=== PATIENT | male | born 1945 | race Caucasian/White ===

== ENCOUNTER 2018-08-25 17:11 | Observation (INO) ==
[2018-08-25] MEDS ORDERED: Isovue-370 500 ML INFUS..BTL IV ONE (20:02)
--- NOTE | 2018-08-25 20:31 | Emergency Department Note ---
Disposition Clinical Impression: Deep vein thrombosis of lower extremity, Swelling of lower limb Disposition: Admitted As Inpatient Condition: Fair Referrals: Tucker Dinero MD [Primary Care Provider] - Forms: ED Satisfaction Letter Time of Disposition: 01:08 General Adult HPI - General Chief complaint: ED Extremity Problem,Nontraumatic Stated complaint: "abcess in leg leaking" Time Seen by Provider: 08/25/18 19:19 - History of Present Illness Pain Scale: 8 - Related Data Home Medications Medication Instructions Recorded Confirmed Aloe Vera 10/24/16 Milk Thistle 10/24/16 Multivitamin 10/24/16 Vitamin B Complex 10/24/16 Vitamin B-12 10/24/16 Vitamin D3 10/24/16 Previous Rx's Medication Instructions Recorded Benzonatate [Tessalon] 200 mg PO TID #40 capsule 09/25/17 predniSONE [PredniSONE] 0 mg PO DAILY #15 tablet 09/25/17 Allergies Allergy/AdvReac Type Severity Reaction Status Date / Time No Known Allergies Allergy Unverified 09/25/17 14:19 Past Medical History - Past Medical History Medical history: Reports: no medical history Surgical history: Reports: other (Vitrectomy 1981) - Social History Smoking Status: Never smoker Smokeless Tobacco Status: No Alcohol use: Reports: none Course Vital Signs Temperature 97.7 F 08/25/18 17:43 Pulse Rate 84 08/25/18 17:43 Respiratory Rate 16 08/25/18 17:43 Blood Pressure 161/73 08/25/18 17:43 O2 Sat by Pulse Oximetry 94 08/25/18 17:43 Temperature 97.7 F 08/25/18 20:50 Pulse Rate 84 08/25/18 20:50 Respiratory Rate 16 08/25/18 20:50 Blood Pressure 161/73 08/25/18 20:50 O2 Sat by Pulse Oximetry 94 08/25/18 20:50 Oxygen Delivery Oxygen Delivery Room Air Medical Decision Making - Lab Data Result diagrams: 08/25/18 20:22 08/25/18 20:22 Lab Results 08/25/18 08/25/18 08/25/18 Range/Units 20:15 20:22 20:22 WBC 6.8 (4.3-11.1) K/mcL RBC 4.41 (4.19-5.50) M/mcL Hgb 13.7 (12.9-16.9) g/dL Hct 40.9 (37.5-50.1) % MCV 92.7 (83.0-100.0) fL MCH 31.1 (28.0-33.3) pg MCHC 33.5 (31.6-35.5) g/dL RDW 13.1 (11.5-14.5) % Plt Count 180 (140-400) K/mcL MPV 9.4 (9.4-12.4) fL Immature Gran % 0.3 (0-4) % Seg Neutrophils % 61.7 % Lymphocytes % 24.4 % Monocytes % 9.6 % Eosinophils % 3.6 % Basophils % 0.4 % Neutrophils # 4.2 (1.6-8.9) K/mcL Lymphocytes # 1.7 (0.6-4.6) K/mcL Monocytes # 0.7 (0.0-1.3) K/mcL Eosinophils # 0.2 (0.0-0.6) K/mcL Basophils # 0.0 (0.0-0.2) K/mcL PT 10.9 (9.4-12.1) Seconds INR 1.0 APTT 34.3 (26.0-36.0) Seconds Sodium 138 (136-145) mEq/L Potassium 3.9 (3.5-5.1) mEq/L Chloride 101 (98-107) mEq/L Carbon Dioxide 31 H (23-29) mEq/L BUN 16 (8-23) mg/dL Creatinine 1.00 (0.70-1.30) mg/dL Est GFR ( Amer) > 60 (> 60) Est GFR (Non-Af Amer) > 60 (> 60) BUN/Creatinine Ratio 16 (6-26) Glucose 123 H (70-105) mg/dL Calculated Osmolality 289 (280-300) Lactic Acid (0.5-2.2) mmol/L Calcium 9.2 (8.6-10.3) mg/dL 08/25/18 Range/Units 20:22 WBC (4.3-11.1) K/mcL RBC (4.19-5.50) M/mcL Hgb (12.9-16.9) g/dL Hct (37.5-50.1) % MCV (83.0-100.0) fL MCH (28.0-33.3) pg MCHC (31.6-35.5) g/dL RDW (11.5-14.5) % Plt Count (140-400) K/mcL MPV (9.4-12.4) fL Immature Gran % (0-4) % Seg Neutrophils % % Lymphocytes % % Monocytes % % Eosinophils % % Basophils % % Neutrophils # (1.6-8.9) K/mcL Lymphocytes # (0.6-4.6) K/mcL Monocytes # (0.0-1.3) K/mcL Eosinophils # (0.0-0.6) K/mcL Basophils # (0.0-0.2) K/mcL PT (9.4-12.1) Seconds INR APTT (26.0-36.0) Seconds Sodium (136-145) mEq/L Potassium (3.5-5.1) mEq/L Chloride (98-107) mEq/L Carbon Dioxide (23-29) mEq/L BUN (8-23) mg/dL Creatinine (0.70-1.30) mg/dL Est GFR ( Amer) (> 60) Est GFR (Non-Af Amer) (> 60) BUN/Creatinine Ratio (6-26) Glucose (70-105) mg/dL Calculated Osmolality (280-300) Lactic Acid 0.9 (0.5-2.2) mmol/L Calcium (8.6-10.3) mg/dL Attestation Statement - Attestation Attestation: I, Vahe Rivera DO, examined this patient [id number] and my medical decision-making was reviewed with Deep Patel DO , Resident Physician. I agree with the documented findings, disposition and treatment plan as described except to the extent set forth below. Please see my progress notes for details. 73-year-old male presents to the emergency room with persistently worsening right lower extremity swelling. He has pain in his right calf and foot. He is noted swelling is getting worse to the point where skin is weeping. He is currently denying chest pain, shortness breath, nausea vomiting or diarrhea. Denies any fevers or chills. Denies any falls trauma or injuries. Has not had any other complaints or symptoms. Patient decided to come in and get his leg business consult here today because his daughter is concerned about the weeping in the redness. Vital signs are stable. Patient is alert he is oriented and speaking in full sentences. Is otherwise in no distress. Lungs are clear heart is regular. Abdomen is soft nontender nondistended. Patient has no pain with palpation over the right hip. Patient's knee and ankle appear to be structurally stable. There is swelling that is present from above the knee down to the foot. There is warmth noted. No palpable abscesses or fluid accumulation noted. Because of the presenting symptoms as well as the patient's lack of medical history we will do screening labs including a CBC chemistry urinalysis as well as CT imaging and Doppler study of the right lower extremity looking for vascular, tissue and blood clot related etiology. Pulses in the lower extremities are difficult to appreciate but the area is warm. The patient does have normal sensation. No acute signs of arterial occlusion noted at this point. Disposition to be determined once full workup treatment course I been established. We will continue to monitor here until the workup has been completed. See detailed documentation of the physical exam, medical intervention, medical decision-making and disposition in the resident physician's note. No critical care provider the patient's treatment course at this time. [id number] Patient found to have negative CT scan of the leg fluid accumulation or concerning signs for cellulitis. The only area that is noted is around the knee for the patient does have the DVT. Xarelto started here at this time after lengthy discussion with the patient. The family is concerned because he is unable to get around at home and he does not have any help there. Also concerned because he does not have a primary care provider to follow-up with. At this point is determined that the patient will be admitted for monitoring and management. No other acute issues noted during this treatment course. Hospitalist has been paged for admission. Patient is otherwise clinically stable with no acute etiology. No other acute medical intervention required at this point. Patient will be admitted for continuation of care.
[2018-08-25 20:37] LABS: Basophils % 0.4 %; Eosinophils # 0.2 K/mcL (0.0-0.6); Eosinophils % 3.6 %; Hematocrit 40.9 % (37.5-50.1); Hemoglobin 13.7 g/dL (12.9-16.9); Immature Granulocytes % 0.3 % (0-4); Lymphocytes # 1.7 K/mcL (0.6-4.6); Lymphocytes % 24.4 %; Mean Corpuscular HGB Conc 33.5 g/dL (31.6-35.5); Mean Corpuscular Hemoglobin 31.1 pg (28.0-33.3); Mean Corpuscular Volume 92.7 fL (83.0-100.0); Mean Platelet Volume 9.4 fL (9.4-12.4); Monocytes # 0.7 K/mcL (0.0-1.3); Monocytes % 9.6 %; Neutrophils # 4.2 K/mcL (1.6-8.9); Platelet Count 180 K/mcL (140-400); Red Blood Count 4.41 M/mcL (4.19-5.50); Red Cell Distribution Width 13.1 % (11.5-14.5); Segmented Neutrophils % 61.7 %
[2018-08-25 20:56] LABS: BUN/Creatinine Ratio 16 (6-26); Blood Urea Nitrogen 16 mg/dL (8-23); Calcium 9.2 mg/dL (8.6-10.3); Carbon Dioxide 31 mEq/L (23-29); Chloride 101 mEq/L (98-107); Glucose 123 mg/dL (70-105); Osmolality,Calculated 289 (280-300); Potassium 3.9 mEq/L (3.5-5.1); Sodium 138 mEq/L (136-145); eGFR For Non-African Americans > 60 (> 60)
--- NOTE | 2018-08-25 21:06 | Emergency Department Note ---
Addendum entered and electronically signed by Deep Patel DO 08/26/18 01:10: Spoke with on-call hospitalist maria guadalupe Morrow to admit for DVT and leg edema. No further orders at this time Original Note: Disposition Clinical Impression: Lower extremity edema Deep vein thrombosis of lower extremity Qualifiers: Affected thrombotic vein of extremity: unspecified vein of extremity Chronicity: acute Laterality: right Qualified Code(s): I82.401 - Acute embolism and thrombosis of unspecified deep veins of right lower extremity Disposition: Admitted As Inpatient Condition: Good Referrals: Tucker Dinero MD [Primary Care Provider] - Forms: ED Satisfaction Letter Time of Disposition: 01:09 Extremity Problem HPI - General Chief complaint: ED Extremity Problem,Nontraumatic Stated complaint: "abcess in leg leaking" Time Seen by Provider: 08/25/18 19:19 Source: patient Limitations: no limitations Nursing Notes Reviewed: Yes Vital Signs Reviewed: Yes - History of Present Illness HPI Narrative: 73-year-old male no reported medical history, smokes 3 packs cigarette presents to the emergency department with complaints of leg swelling and weeping. Patient states over the past week he is noticed increased leg swelling in the past 3 days and has been seeping fluid. His right leg has appeared significantly more swollen than usual. He denies any chest pain or shortness of breath associated with this. He reports a prior injury to that leg several years ago but nothing recent. No reported weakness or numbness. No fevers at home. Denies any nausea or vomiting. Denies history of congestive heart failure. Denies history of blood clots. Pt Subjective Complaint: extremity pain, extremity swelling Pain Scale: 8 - Related Data Home Medications Medication Instructions Recorded Confirmed Aloe Vera 10/24/16 Milk Thistle 10/24/16 Multivitamin 10/24/16 Vitamin B Complex 10/24/16 Vitamin B-12 10/24/16 Vitamin D3 10/24/16 Previous Rx's Medication Instructions Recorded Benzonatate [Tessalon] 200 mg PO TID #40 capsule 09/25/17 predniSONE [PredniSONE] 0 mg PO DAILY #15 tablet 09/25/17 Allergies Allergy/AdvReac Type Severity Reaction Status Date / Time No Known Allergies Allergy Unverified 09/25/17 14:19 All systems ED: reviewed and negative except as stated. Review of Systems: As Per HPI Constitutional: Denies: fever, chills, weakness ENT ED: Denies: congestion Cardiovascular: Denies: chest pain Respiratory: Denies: dyspnea Gastrointestinal: Denies: abdominal pain, nausea, vomiting Musculoskeletal: Denies: back pain Integumentary: Reports: abrasion, lesions. Denies: rash Neurological: Denies: headache, weakness, numbness Past Medical History - Past Medical History Attestation: Yes The following information was validated with the patient. Source: patient Medical history: Reports: no medical history Surgical history: Reports: other (Vitrectomy 1981) Psychiatric history: Reports: no psych history - Social History Smoking Status: Current some day smoker Smokeless Tobacco Status: No Alcohol use: Reports: none Drug use: Reports: none Physical Exam - General Limitations: no limitations General appearance: alert, in no apparent distress - Head Head exam: atraumatic, normocephalic, normal inspection - Eye Eye exam: Present: normal appearance, PERRL, EOMI - ENT ENT exam: normal exam, normal oropharynx, mucous membranes moist - Neck Neck exam: Present: normal inspection, full ROM, trachea midline - Chest Chest inspection: Present: normal inspection, symmetric chest wall rise - Respiratory Respiratory exam: Present: normal lung sounds bilaterally - Cardiovascular Cardiovascular exam: Present: regular rate, normal rhythm, normal heart sounds - Abdominal Exam Abdominal exam: Present: soft, Non-Tender, normal bowel sounds. Absent: tend erness, distention, guarding, rebound, rigidity - Extremities Exam Extremities exam: Present: full ROM, pedal edema (Bilateral, greater on the right), calf tenderness (Right), other (Right lower extremities is weeping clear fluid, there are yellow crusted lesions on the lower leg). Absent: tenderness - Back Exam Back exam: Present: normal inspection, full ROM. Absent: tenderness - Neurological Exam Neurological exam: Present: alert, oriented X3 - Psychiatric Psychiatric exam: Present: normal affect, normal mood - Expanded Skin Exam Type of lesion: Absent: abscess Distribution: RLE Description: Present: erythematous, swelling. Absent: fluctuant Course Course Narrative: Patient presents with lower extremity swelling worse on the right with weeping of clear fluid. Patient is afebrile and denies fevers at home. He denies any dyspnea. No reported history of congestive heart failure. The right leg is significantly swollen and weeping clear fluid. There are 3 lesions that are yellow and crusty in nature. His leg is slightly erythematous but not warm to the touch. He has full range of motion to his lower extremity. There is some Tenderness. Pitting edema bilaterally but worse on the right up to the mid thigh. Concern for possible underlying deep vein thrombosis Doppler study ordered. Will also check basic labs including the CT scan to evaluate for any abscess. - Reevaluation(s) Reevaluation #1: Preliminary venous Doppler ultrasound positive for deep vein thrombosis Time: 22:08 Reevaluation #2: CT scan showed circumferential swelling. There was no fluid collection or abscess. The symptoms are likely exacerbated due to the blood clot. She will require anticoagulation. I discussed the risks and benefits and alternatives of different anticoagulants including Coumadin versus Lovenox versus NOAC. The patient and family decided they would like to try Xarelto. However the patient is not have primary care established and do not feel safe going back home as he is concerned he can't move around and take care of himself. Review of his labs are unremarkable. Lactate was normal. Patient was offered admission and will be treated with his 1st dose of Xarelto here. Denies any G.I. bleed symptoms. Tylenol given for pain. Time: 01:07 Vital Signs Temperature 97.7 F 08/25/18 17:43 Pulse Rate 84 08/25/18 17:43 Respiratory Rate 16 08/25/18 17:43 Blood Pressure 161/73 08/25/18 17:43 O2 Sat by Pulse Oximetry 94 08/25/18 17:43 Temperature 97.7 F 08/25/18 20:50 Pulse Rate 84 08/25/18 20:50 Respiratory Rate 16 08/25/18 20:50 Blood Pressure 161/73 08/25/18 20:50 O2 Sat by Pulse Oximetry 94 08/25/18 20:50 Oxygen Delivery Oxygen Delivery Room Air Extremity Problem, Nontraumati - MDM Narrative Medical decision making narrative: Patient was discussed with my attending physician who agrees with ED management and final disposition. They independently evaluated the patient. Please refer to their attestation to this encounter for additional information. This note was generated by [employer] voice recognition software and as a result grammatical or spelling errors may occur using this program. - Differential Diagnosis Likely: cellulitis, lower extremity edema - Medical Records Medical records reviewed: Yes I reviewed the patient's medical records. - Lab Data Lab results reviewed: Yes I reviewed the patient's lab results. Result diagrams: 08/25/18 20:22 08/25/18 20:22 Lab Results 08/25/18 08/25/18 08/25/18 Range/Units 20:15 20:22 20:22 WBC 6.8 (4.3-11.1) K/mcL RBC 4.41 (4.19-5.50) M/mcL Hgb 13.7 (12.9-16.9) g/dL Hct 40.9 (37.5-50.1) % MCV 92.7 (83.0-100.0) fL MCH 31.1 (28.0-33.3) pg MCHC 33.5 (31.6-35.5) g/dL RDW 13.1 (11.5-14.5) % Plt Count 180 (140-400) K/mcL MPV 9.4 (9.4-12.4) fL Immature Gran % 0.3 (0-4) % Seg Neutrophils % 61.7 % Lymphocytes % 24.4 % Monocytes % 9.6 % Eosinophils % 3.6 % Basophils % 0.4 % Neutrophils # 4.2 (1.6-8.9) K/mcL Lymphocytes # 1.7 (0.6-4.6) K/mcL Monocytes # 0.7 (0.0-1.3) K/mcL Eosinophils # 0.2 (0.0-0.6) K/mcL Basophils # 0.0 (0.0-0.2) K/mcL PT 10.9 (9.4-12.1) Seconds INR 1.0 APTT 34.3 (26.0-36.0) Seconds Sodium 138 (136-145) mEq/L Potassium 3.9 (3.5-5.1) mEq/L Chloride 101 (98-107) mEq/L Carbon Dioxide 31 H (23-29) mEq/L BUN 16 (8-23) mg/dL Creatinine 1.00 (0.70-1.30) mg/dL Est GFR ( Amer) > 60 (> 60) Est GFR (Non-Af Amer) > 60 (> 60) BUN/Creatinine Ratio 16 (6-26) Glucose 123 H (70-105) mg/dL Calculated Osmolality 289 (280-300) Lactic Acid (0.5-2.2) mmol/L Calcium 9.2 (8.6-10.3) mg/dL 08/25/18 Range/Units 20:22 WBC (4.3-11.1) K/mcL RBC (4.19-5.50) M/mcL Hgb (12.9-16.9) g/dL Hct (37.5-50.1) % MCV (83.0-100.0) fL MCH (28.0-33.3) pg MCHC (31.6-35.5) g/dL RDW (11.5-14.5) % Plt Count (140-400) K/mcL MPV (9.4-12.4) fL Immature Gran % (0-4) % Seg Neutrophils % % Lymphocytes % % Monocytes % % Eosinophils % % Basophils % % Neutrophils # (1.6-8.9) K/mcL Lymphocytes # (0.6-4.6) K/mcL Monocytes # (0.0-1.3) K/mcL Eosinophils # (0.0-0.6) K/mcL Basophils # (0.0-0.2) K/mcL PT (9.4-12.1) Seconds INR APTT (26.0-36.0) Seconds Sodium (136-145) mEq/L Potassium (3.5-5.1) mEq/L Chloride (98-107) mEq/L Carbon Dioxide (23-29) mEq/L BUN (8-23) mg/dL Creatinine (0.70-1.30) mg/dL Est GFR ( Amer) (> 60) Est GFR (Non-Af Amer) (> 60) BUN/Creatinine Ratio (6-26) Glucose (70-105) mg/dL Calculated Osmolality (280-300) Lactic Acid 0.9 (0.5-2.2) mmol/L Calcium (8.6-10.3) mg/dL - Radiology Data Radiology results reviewed: Yes I reviewed the patient's radiology results. Lower Extremity CT 08/25/18 20:02 IMPRESSION: 1. Circumferential superficial soft tissue edema in the distal right thigh, extending into the right leg and right foot. No abscess or fluid collection. D/ / Preston Cole MD / Preston Cole MD Interpreting Provider: Preston Cole MD Attestation Statement - Attestation Attestation: I, Vahe Rivera DO, examined this patient [id number] and my medical decision-making was reviewed with Deep Patel DO , Resident Physician. I agree with the documented findings, disposition and treatment plan as described except to the extent set forth below. Please see my progress notes for details.
[2018-08-25 23:09] LABS: Prothrombin Time 10.9 Seconds (9.4-12.1)
[2018-08-25 23:12] LABS: Activated Partial Thrombo Time 34.3 Seconds (26.0-36.0)
[2018-08-26] MEDS ORDERED: Ibuprofen 600 MG TABLET PO ONE (00:08)
[2018-08-26] MEDS ORDERED: *HR* Rivaroxaban 15 MG TABLET PO ONE (01:00)
[2018-08-26] MEDS ORDERED: Naloxone 0.4 MG/ML INJ IVP PRN (04:41)
[2018-08-26] MEDS ORDERED: Acetaminophen 325 MG TABLET PO PRN (04:41)
[2018-08-26] MEDS ORDERED: Ketorolac 30 MG/ML VIAL IVP PRN (04:41)
[2018-08-26] MEDS ORDERED: Ipratropium/Albuterol Neb 3 ML IH PRN (04:44)
--- NOTE | 2018-08-26 04:51 | Internal Med History&Physical ---
Date of Encounter: 08/26/18 Time of Encounter: 04:49 Internal Medicine - H&P: HPI Chief complaint: leg swelling Admitted From: Home Plans for Post Hospital Care: Home History of present illness: Joo Manjarrez is a 73-year-old man who reports a strong smoking history seen to have obstructive pattern of lung disease on spirometry from 2014 who presents to the emergency room complaining of lower extremity swelling with the right side worse than the left in addition to weeping of clear fluid. He states that the swelling has been going on for months however over the past week has noticed that his right leg became significantly more swollen and erythematous without associated worsening pain or tenderness. He denied fever and chills. In the ER he was seen to have pitting edema bilaterally but worse on the right up to the midthigh. Doppler study was ordered and preliminary report was suggestive of acute DVT. CT scan was also ordered which ruled out any abscess or fluid collection. He was started on rivaroxaban in the ER however the patient stated that he does not have a primary care physician and did not feel safe going back home as he was concerned about his inability to move around and not able to care for himself in the current situation. For these reasons he is admitted for ongoing observation and provision of assistance. He denies chest pain or shortness of breath. He has never had blood clots in the past he states. No recent travels or hormonal medications. States that he takes ibuprofen twice a day and nothing else. Past Med Surg Social Fam HX - Past Medical History Medical history: no medical history Psychiatric history: no psych history - Past Surgical History Surgical History: vasectomy - Social History Smoking Status: Current some day smoker Smokeless Tobacco Status: No Alcohol use: none Drug use: none - Family History Mother Living Status: Age at : 94 Cause of : heart attack Hx Family Cardiac Disorders: Yes (heart attack) Father Living Status: Age at : 51 Cause of : cancer- espogheal Internal Medicine - H&P: Meds Aloe Vera 10/24/16 [History] Milk Thistle 10/24/16 [History] Multivitamin 10/24/16 [History] Vitamin B Complex 10/24/16 [History] Vitamin B-12 10/24/16 [History] Vitamin D3 10/24/16 [History] Benzonatate [Tessalon] 200 mg PO TID #40 capsule 09/25/17 [Rx] predniSONE [PredniSONE] 0 mg PO DAILY #15 tablet 09/25/17 [Rx] Allergy/AdvReac Type Severity Reaction Status Date / Time No Known Allergies Allergy Unverified 09/25/17 14:19 All Systems PM: A 10-system review of systems was performed and is negative for pertinent findings except as documented above in the HPI. - Constitutional Vitals: Temp Pulse Resp BP Pulse Ox 98.0 F 77 16 134/63 95 08/26/18 04:03 08/26/18 04:03 08/26/18 04:03 08/26/18 04:03 08/26/18 04:03 Exam: Vitals: Reviewed General: Well-appearing and in no acute distress. Skin: Excoriation some blisters noted on her right lower extremity with denuded erythematous areas. HEENT: Moist mucous membranes. No conjunctivae pallor. Neck: No lymphadenopathy. No JVD. No carotid bruits. No palpable thyroid. Chest: Normal thoracic expansion. Normal breath sounds. Clear to auscultation. Heart: Normal S1 & S2; rhythmic. No rubs or murmurs. Abdomen: distended, soft and non-tender to palpation. No peritoneal reaction. Extremities: 3+ pitting edema of the right lower extremity and 2+ edema of the left lower extremity Neurological: Awake, alert and oriented to person, place and time. No focal deficits. Psych: Affect appropriate. Internal Med - H&P Results - Labs CBC & Chem 7: 08/25/18 20:22 08/25/18 20:22 Labs: Short CBC 08/25/18 Range/Units 20:22 WBC 6.8 (4.3-11.1) K/mcL Hgb 13.7 (12.9-16.9) g/dL Hct 40.9 (37.5-50.1) % Plt Count 180 (140-400) K/mcL Neutrophils # 4.2 (1.6-8.9) K/mcL BMP 08/25/18 20:22 Sodium 138 Potassium 3.9 Chloride 101 Carbon Dioxide 31 H BUN 16 Creatinine 1.00 Glucose 123 H Calcium 9.2 - Impressions ITS Impressions Lower Extremity CT 08/25/18 20:02 IMPRESSION: 1. Circumferential superficial soft tissue edema in the distal right thigh, extending into the right leg and right foot. No abscess or fluid collection. D/ / Preston Cole MD / Preston Cole MD Interpreting Provider: Preston Cole MD - Assessment and plan (1) Deep vein thrombosis of lower extremity Current Visit: Yes Status: Acute Assessment and plan: Clinically suspicious and the preliminary doppler study shows a clot. Davy yet to be determined. Currently has no respiratory symptoms concerning for PE. Will continue rivaroxaban that was already started in the ER. SW consultation requested to assist with obtaining medications and establishing f/u with a PCP. Qualifiers: Affected thrombotic vein of extremity: unspecified vein of extremity Chronicity: acute Laterality: right Qualified Code(s): I82.401 - Acute embolism and thrombosis of unspecified deep veins of right lower extremity (2) Tobacco dependence Current Visit: Yes Status: Acute Assessment and plan: The patient reports a prior 2-3 pack/day smoking history but has cut down over the past 6 months. Continued counseling was provided and resources made available. Will place on prn nebulizer therapy given his obstructive lung disease pattern on PFT. - Time Spent With Patient Total time spent is greater than 50% in coordination of care (as documented) at patient's floor/unit and/or counseling patient: Greater than 35 minutes
[2018-08-26] MEDS: *HR* Rivaroxaban 15 MG TABLET PO SCH ×2 (07:30→19:55)
--- NOTE | 2018-08-26 08:59 | Internal Med Progress Note ---
Hospitalist Progress Note - Encounter Date of Encounter: 08/26/18 Time of Encounter: 08:56 - Subjective Interval History: Patient seen and examined this morning at bedside. No acute overnight events. Complains of right leg pain. Denies any fever or chills nausea vomiting or diarrhea. Denies any chest pain or shortness of breath. - Exam Vitals: Temp Pulse Resp BP Pulse Ox 97.9 F 74 16 112/58 95 08/26/18 06:56 08/26/18 06:56 08/26/18 06:56 08/26/18 06:56 08/26/18 06:56 Exam: General: In no acute distress. Conversant. Obese. Respiratory exam: CTAB. no accessory muscle use, rales, rhonchi, wheezes Cardiovascular exam: RRR, +S1, +S2. no murmur, gallop, rubs. GI/Abdominal exam: Obese, Non-tender, Non-distended, normal bowel sounds, soft, no peritoneal signs. Extremities exam: full ROM, 2+ pedal edema or Lt and 3+ on Rt, warm, pulses palpable in b/l lower extremities. no calf tenderness Neurological exam: CN II-XII intact, AO X3, no focal deficits. no pronater drift, facial droop, speech deficit Skin exam: Excoriations noted on her right lower extremity with denuded erythematous areas associated with pain, however no significant erythema. - Assessment and Plan (1) Deep vein thrombosis of lower extremity Current Visit: Yes Status: Acute (2) Tobacco dependence Current Visit: Yes Status: Acute - Summary of Assessment and Plan Summary of Assessment and Plan: Deep vein thrombosis of lower extremity - CT leg did not show gas or abscess/fluid collection on Rt - US for right superficial femoral vein demonstrates acute thrombosis. LLE without DVT - c/w rivaroxaban that was already started in the ER. - c/w apin control - SW/PT/OT consultation requested to assist with obtaining medications and establishing f/u with a PCP. Tobacco dependence - discussed about cessation Mild diastolic heart failure - Likely causing leg swelling - Start lasix - monitor renal function. COPD - c/w duonebs Internal Medicine: Result - Labs CBC & Chem 7: 08/25/18 20:22 08/25/18 20:22 Labs: Short CBC 08/25/18 Range/Units 20:22 WBC 6.8 (4.3-11.1) K/mcL Hgb 13.7 (12.9-16.9) g/dL Hct 40.9 (37.5-50.1) % Plt Count 180 (140-400) K/mcL Neutrophils # 4.2 (1.6-8.9) K/mcL BMP 08/25/18 20:22 Sodium 138 Potassium 3.9 Chloride 101 Carbon Dioxide 31 H BUN 16 Creatinine 1.00 Glucose 123 H Calcium 9.2 - ABG Interpretation ABG results: PT/INR, D-dimer PT 10.9 Seconds (9.4-12.1) 08/25/18 20:15 - Impressions Impressions Lower Extremity CT 08/25/18 20:02 IMPRESSION: 1. Circumferential superficial soft tissue edema in the distal right thigh, extending into the right leg and right foot. No abscess or fluid collection. D/ / 08/26/2018 07:07:27 Preston Cole MD / Jennifer Read Interpreting Provider: Preston Cole MD Chest X-Ray 08/26/18 07:16 IMPRESSION: No acute cardiopulmonary disease. No radiographic evidence of a lung mass. However, If a pulmonary nodular mass is of clinical concern, suggest further characterization with a dedicated chest CT, preferably with contrast. D/ / 08/26/2018 08:01:06 Fidel Ramos MD / Jennifer Read Interpreting Provider: Fidel Ramos MD Consult Discharge Plan - Plan Referrals: Tucker Dinero MD [Primary Care Provider] - (1) Deep vein thrombosis of lower extremity Qualifiers: Affected thrombotic vein of extremity: unspecified vein of extremity Chronicity: acute Laterality: right Qualified Code(s): I82.401 - Acute embolism and thrombosis of unspecified deep veins of right lower extremity
[2018-08-26] MEDS: Furosemide 20 MG/2 ML VIAL IVP SCH ×2 (11:57→16:35)
[2018-08-26] MEDS: traMADol 50 MG TABLET PO PRN ×2 (12:02→19:55)
[2018-08-27] MEDS: traMADol 50 MG TABLET PO PRN (03:01)
--- NOTE | 2018-08-27 07:50 | Internal Med Progress Note ---
Hospitalist Progress Note - Encounter Date of Encounter: 08/27/18 Time of Encounter: 10:18 - Subjective Interval History: 73 YO M here for RLE pain d/t DVT. Patient reports no acute complaints overnight. Still having R leg pain in mid thigh and b/l edema. No CP, SOB, pain with breathing, new onset pain in extremities. - Exam Vitals: Temp Pulse Resp BP Pulse Ox 98.1 F 73 14 154/71 94 08/27/18 06:49 08/27/18 06:49 08/27/18 06:49 08/27/18 06:49 08/27/18 06:49 Exam: General: In no acute distress. Respiratory exam: CTAB. no rales, rhonchi, wheezes appreciated Cardiovascular exam: RRR, +S1, +S2. GI/Abdominal exam: Non-tender, Non-distended Lower Extremities exam: 2-3+ edema in b/l LE. Pulses apprecited b/l. No calf tenderness b/l. Neurological exam: AO X3, no focal deficits. Skin exam: Excoriations noted on RLE - Assessment and Plan (1) Deep vein thrombosis of lower extremity Status: Acute Assessment and Plan: 73 YO M presenting with RLE pain 2/2 acute partially occlusive thrombusPO Q6 for pain + Tylenol 650 Q6 - On rivaroxaban for antirhombotic therapy in R distal superficial femoral vein seen on doppler. CT shows superficial soft tissue edema w/o abscess or fluid collection. - Patient states that pain is 4/10 and is controlled. Continue tramadol 50 - Considering d/c patient today. Would like to d/c patient with eloquis vs xarelto. Will consult pharmacy to clements eloquis. - Social work, PT/OT consulted to setup home meds, PCP f/u (2) Diastolic heart failure Status: Chronic Assessment and Plan: Patient has diastolic CHF. He has normal CXR, no CP or palpitations. PE: B/L LE EDEMA 2-3+ . BP 154/71 and creatinine on 08/26 was 1.0. - He received 40mg lasix yesterday which has been stopped. BP elevated at 154/71. - Ordered BMP for today to monitor creatinine (3) COPD (chronic obstructive pulmonary disease) Status: Acute Assessment and Plan: Patient has COPD. No complaints of SOB. - Continue ipratorpium/albuterol PRN (4) GERD (gastroesophageal reflux disease) Status: Acute Assessment and Plan: Patient states he is having acid reflux and would like a PPI. - Continue ompreazole DVT Prophylaxis: On xarelto - Time Spent with Patient Total time spent is greater than 50% in coordination of care (as documented) at patient's floor/unit and/or counseling patient: Internal Medicine: Result - Labs CBC & Chem 7: 08/25/18 20:22 08/27/18 08:22 - ABG Interpretation ABG results: PT/INR, D-dimer PT 10.9 Seconds (9.4-12.1) 08/25/18 20:15 - Impressions Impressions Chest X-Ray 08/26/18 07:16 IMPRESSION: No acute cardiopulmonary disease. No radiographic evidence of a lung mass. However, if a pulmonary nodule or mass is of clinical concern, suggest further characterization with a dedicated chest CT, preferably with contrast. D/ / 08/26/2018 08:01:06 Fidel Ramos MD / Jennifer Read Interpreting Provider: Fidel Ramos MD Consult Discharge Plan - Plan Instructions: Deep Venous Thrombosis (DC) Additional Instructions: Please schedule appointment with primary care provider as soon possibly to monitor DVT resolution. If worsening symptoms of pain of swelling in right lower leg please seek treatment at emergency department. Referrals: [facility] [Other] (Voicemail left with office to call patient with appointment.) Leighton Aaron MD [Partnered Physician] - (wound care LLE ) Tucker Dinero MD [Primary Care Provider] - 09/06/18 1:15 pm (Please arrive 30 minutes early for your hospital follow up appointment with Dr. Dinero. Please bring a photo ID, insurance card, and updated medication list. If you need to cancel or reschedule please give a 24 hour notice. ) Prescriptions: Apixaban [Eliquis] 10 mg PO BID 7 Days tablet (1) Deep vein thrombosis of lower extremity Qualifiers: Affected thrombotic vein of extremity: femoral Chronicity: acute Laterality: right Qualified Code(s): I82.411 - Acute embolism and thrombosis of right femoral vein (2) Diastolic heart failure Qualifiers: Heart failure chronicity: chronic Qualified Code(s): I50.32 - Chronic diastolic (congestive) heart failure (3) COPD (chronic obstructive pulmonary disease) Qualifiers: COPD type: unspecified COPD Qualified Code(s): J44.9 - Chronic obstructive pulmonary disease, unspecified (4) GERD (gastroesophageal reflux disease) Qualifiers: Esophagitis presence: esophagitis presence not specified Qualified Code(s): K21.9 - Gastro-esophageal reflux disease without esophagitis
[2018-08-27] MEDS: *HR* Rivaroxaban 15 MG TABLET PO SCH (09:24)
[2018-08-27 09:26] LABS: BUN/Creatinine Ratio 16 (6-26); Blood Urea Nitrogen 15 mg/dL (8-23); Calcium 8.8 mg/dL (8.6-10.3); Carbon Dioxide 30 mEq/L (23-29); Chloride 100 mEq/L (98-107); Glucose 107 mg/dL (70-105); Osmolality,Calculated 281 (280-300); Potassium 3.9 mEq/L (3.5-5.1); Sodium 135 mEq/L (136-145); eGFR For Non-African Americans > 60 (> 60)
--- NOTE | 2018-08-27 13:38 | Discharge Summary ---
<Jonnathan Moss - Last Filed: 08/27/18 14:47> Orders not resulted at time of discharge: Pending orders 08/25/18 20:22 Culture,Blood [BC] Stat Date of Encounter: 08/27/18 Time of Encounter: 13:34 - Discharge Diagnosis (1) Deep vein thrombosis of lower extremity Priority: Primary Status: Acute Assessment and Plan: Patient on anticoagulation for 3 months. For pain management use over the counter TYLENOL - 2 tabs every 4-6 hours as needed. - Please follow up with your primary care provider for monitoring Qualifiers: Affected thrombotic vein of extremity: femoral Chronicity: acute Laterality: right Qualified Code(s): I82.411 - Acute embolism and thrombosis of right femoral vein (2) COPD (chronic obstructive pulmonary disease) Priority: Secondary Status: Acute Assessment and Plan: Please follow up with primary care provider for management. Qualifiers: COPD type: unspecified COPD Qualified Code(s): J44.9 - Chronic obstructive pulmonary disease, unspecified Hospital course: Mr. Manjarrez is a 73 year old male Discharge discussed with: patient - Time Spent with Patient Total time spent providing and/or coordinating discharge services: - Discharge Medications Prescriptions: Apixaban [Eliquis] 10 mg PO BID 7 Days tablet Home Medications: Aloe Vera 10/24/16 [History] Milk Thistle 10/24/16 [History] Multivitamin 10/24/16 [History] Vitamin B Complex 10/24/16 [History] Vitamin B-12 10/24/16 [History] Vitamin D3 10/24/16 [History] Benzonatate [Tessalon] 200 mg PO TID #40 capsule 09/25/17 [Rx] predniSONE [PredniSONE] 0 mg PO DAILY #15 tablet 09/25/17 [Rx] Apixaban [Eliquis] 10 mg PO BID 7 Days tablet 08/27/18 [Rx] Allergies/Adverse Reactions: Allergy/AdvReac Type Severity Reaction Status Date / Time No Known Allergies Allergy Unverified 09/25/17 14:19 Date of admission: 08/26/18 02:34 Primary care physician: Tucker Dinero MD Consults: 08/26/18 04:47 Consult to Commissions Analyst [CONS] Routine Reason for SW Consult: New DVT diagnosis in the setting of significant leg swelling. Patient states he is unable to care for himself and has no primary care physician. 08/26/18 07:17 Consult to Occupational Therapy [CONS] Routine Comment: Evaluate, develop and implement POC Reason for Consult: improve mobility Does patient have active BEDREST order?: No Is patient medically & hemodynamically stable?: Yes Consult to Physical Therapy [CONS] Routine Comment: Evaluate, develop and implement POC Reason for Consult: improve mobility Does patient have active BEDREST order?: No Is patient medically & hemodynamically stable?: Yes Discharging clinician: Jonnathan Moss Anticipated date of discharge: 08/27/18 - Constitutional Vitals: Temp Pulse Resp BP Pulse Ox 98.0 F 88 13 131/60 95 08/27/18 10:29 08/27/18 10:29 08/27/18 10:29 08/27/18 10:29 08/27/18 10:29 General appearance: Present: A&O X 3, pleasant, no acute distress, loss of weight Exam: . - Head Head exam: Present: atraumatic, normal inspection - Eye Eye exam: Present: EOMI, normal appearance - Neck Neck exam general surgery: Present: supple, trachea midline - Respiratory Respiratory exam: Present: CTAB - Cardiovascular Cardiovascular exam: Present: RRR, +S1, +S2 - GI/Abdominal GI/Abdominal exam: Present: normal bowel sounds. Absent: tenderness - Extremities Exam Extremities exam: Present: full ROM, tenderness (Tenderness in mid-thigh), radial pulses palpable and symmetrical. Absent: calf tenderness, cyanotic - Neurological Exam Neurological exam: Present: alert, oriented X3, no focal deficits - Psychiatric Psychiatric exam: Present: normal affect, normal mood - Skin Skin exam: Present: dry, excoriation (excoration in the RLE anteriorly, otherwise intact), intact, warm - Patient Status Disposition: Home, Self-Care Condition: Good Functional capacity at discharge: independent ambulation Overall status at discharge: patient is progressing back to baseline - Discharge Instructions Instructions: Deep Venous Thrombosis (DC) Follow Up With: [facility] [Other] (Voicemail left with office to call patient with appointment.) Leighton Aaron MD [Partnered Physician] - (wound care LLE ) Tucker Dinero MD [Primary Care Provider] - 09/06/18 1:15 pm (Please arrive 30 minutes early for your hospital follow up appointment with Dr. Dinero. Please bring a photo ID, insurance card, and updated medication list. If you need to cancel or reschedule please give a 24 hour notice. ) Additional Instructions: Please schedule appointment with primary care provider as soon possibly to monitor DVT resolution. If worsening symptoms of pain of swelling in right lower leg please seek treatment at emergency department. - Diet and Activity Activity: increase activity as tolerated Diet: low fat, low cholesterol, low salt diet <Mayra Rodrigues - Last Filed: 08/27/18 15:03> - NOTES TO OUTPATIENT PROVIDER Notes to Outpatient Provider: New right lower extremity DVT which is unprovoked. Started on anticoagulation with an NOAC. Needs at least 6 months of anticoagulation Orders not resulted at time of discharge: Pending orders 08/25/18 20:22 Culture,Blood [BC] Stat Date of Encounter: 08/27/18 - Discharge Diagnosis (1) Deep vein thrombosis of lower extremity Status: Acute Qualifiers: Affected thrombotic vein of extremity: femoral Chronicity: acute Laterality: right Qualified Code(s): I82.411 - Acute embolism and thrombosis of right femoral vein (2) COPD (chronic obstructive pulmonary disease) Status: Acute Qualifiers: COPD type: unspecified COPD Qualified Code(s): J44.9 - Chronic obstructive pulmonary disease, unspecified Hospital course: Mr. Manjarrez is a 73 year old male - Time Spent with Patient Total time spent providing and/or coordinating discharge services: Date of admission: 08/26/18 02:34 Primary care physician: Tucker Dinero MD Consults: 08/26/18 04:47 Consult to Commissions Analyst [CONS] Routine Reason for SW Consult: New DVT diagnosis in the setting of significant leg swelling. Patient states he is unable to care for himself and has no primary care physician. 08/26/18 07:17 Consult to Physical Therapy [CONS] Routine Comment: Evaluate, develop and implement POC Reason for Consult: improve mobility Does patient have active BEDREST order?: No Is patient medically & hemodynamically stable?: Yes - Constitutional Vitals: Temp Pulse Resp BP Pulse Ox 97.4 F L 78 14 168/67 95 08/27/18 14:17 08/27/18 14:17 12/17/18 14:17 08/27/18 14:17 08/27/18 14:17 - Attending Attestation I have performed a face- to face examination of this patient and participated in formulation of ceja components of Assessment and plan with the Resident. New right lower extremity DVT unprovoked. Started on Eliquis and will be discharged today. He needs to be followed up as an outpatient. I personally explained to him the risks and benefits of going on anticoagulation along with the pharmacist in the room. All questions answered. Rest of the plan for discharge as per the discharge summary done by the resident. Addendum entered and electronically signed by Jonnathan Moss 08/27/18 15:39:
[2018-08-27 14:22] VITALS: BP 168/67
== END 2018-08-27 15:27 | disposition home or self-care (01) ==
LOC: EMEROOARM 17:11 → 3ANU 17:11 → SUATTDRO 08-26 02:34 → 3ANU 08-26 03:48
PROVIDERS: ADMIT Internal Medicine; ATTEND Internal Medicine

== ENCOUNTER 2019-05-08 12:55 | Observation (INO) ==
--- NOTE | 2019-05-08 13:26 | Emergency Department Note ---
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, from catheterization laboratory technician Time Seen by Provider: 05/08/19 12:59 Source: patient Mode of arrival: ambulatory Limitations: no limitations Nursing Notes Reviewed: Yes Vital Signs Reviewed: Yes - History of Present Illness HPI Narrative: Patient 73-year-old male with a history of recent cat this morning to evaluate the large airways. Patient states that after getting up the catheter table he has felt lightheaded, weakness and "not right". He was normal before his catheterization. His symptoms have been improving but he has not returned to baseline, he is unable to get up and move around. patient lives alone at home. Patient denies any chest pain, shortness of breath, abdominal pain, nausea, vomiting, vision changes, headaches. Pain Scale: 0 - Related Data Home Medications Medication Instructions Recorded Confirmed Cyanocobalamin (Vitamin B-12) 5,000 mcg PO DAILY 10/24/16 05/08/19 [Vitamin B12] Milk Thistle Seed Extract [Milk 1 cap PO DAILY 10/24/16 05/08/19 Thistle] Mv-Mn/FA/Vit K/Lycop/Lut/Coq10 1 each PO DAILY 10/24/16 05/08/19 [Daily Multivitamin Capsule] Ascorbate Calcium [Vitamin C] 500 mg PO DAILY 05/08/19 05/08/19 Cholecalciferol (Vitamin D3) 5,000 unit PO DAILY 05/08/19 05/08/19 [Dialyvite Vitamin D] Diosmin 1 gm PO DAILY 05/08/19 05/08/19 Lutein [Natural Lutein] 20 mg PO DAILY 05/08/19 05/08/19 Previous Rx's Medication Instructions Recorded Aspirin [Lo-Dose Aspirin EC] 81 mg PO DAILY #30 tablet. 01/29/19 Allergies Allergy/AdvReac Type Severity Reaction Status Date / Time apixaban [From Eliquis] AdvReac Headache Verified 05/08/19 07:07 All systems ED: reviewed and negative except as stated. Review of Systems: As Per HPI Constitutional: Reports: weakness. Denies: fever, chills Eyes: Denies: vision change ENT ED: Denies: ear pain, throat pain Cardiovascular: Denies: chest pain, palpitations, dyspnea on exertion Respiratory: Denies: cough, dyspnea, wheezes Gastrointestinal: Denies: abdominal pain, nausea, vomiting Genitourinary: Denies: urgency, dysuria, frequency Musculoskeletal: Denies: back pain, neck pain Integumentary: Denies: rash, abrasion Neurological: Reports: weakness. Denies: headache, numbness, paresthesias, confusion Past Medical History - Past Medical History Attestation: Yes The following information was validated with the patient. Medical history: Reports: coronary artery disease Surgical history: Reports: vasectomy Psychiatric history: Reports: no psych history - Social History Smoking Status: Former smoker Smokeless Tobacco Status: No Alcohol use: Reports: occasionally Drug use: Reports: none Physical Exam - General Limitations: no limitations General appearance: alert, in no apparent distress - Head Head exam: atraumatic, normocephalic - Eye Eye exam: Present: normal appearance, PERRL, EOMI. Absent: scleral icterus - ENT ENT exam: normal exam, normal oropharynx, mucous membranes moist - Neck Neck exam: Present: normal inspection, full ROM - Chest Chest inspection: Present: normal inspection, symmetric chest wall rise. Absent: tenderness - Respiratory Respiratory exam: Present: normal lung sounds bilaterally. Absent: respiratory distress, wheezes - Cardiovascular Cardiovascular exam: Present: regular rate, normal rhythm, normal heart sounds. Absent: bradycardia, tachycardia - Abdominal Exam Abdominal exam: Present: soft, Non-Tender. Absent: tenderness, distention, guarding - Extremities Exam Extremities exam: Present: normal inspection - Neurological Exam Neurological exam: Present: alert, oriented X3, CN II-XII intact. Absent: motor sensory deficit - Psychiatric Psychiatric exam: Present: normal affect, normal mood - Skin Skin exam: Present: warm Course Course Narrative: Patient presented with dizziness and weakness following a catheterization to evaluate for lower extremity vasculature patient has not returned to baseline. We will evaluate him with laboratories as well as a head CT. - Reevaluation(s) Reevaluation #1: Spoke with patient and family patient has no one to take care of him at home and is currently not safe to go home. Patient agrees to be admitted. Reevaluation #2: Dr. Shah hospitalist who requested we give the patient additional fluid. Agreed to admit the patient to the observation unit. Time: 16:02 Vital Signs Temperature 98.0 F 05/08/19 12:58 Pulse Rate 70 08/28/19 12:58 Respiratory Rate 16 05/08/19 12:58 Blood Pressure 149/78 05/08/19 12:58 O2 Sat by Pulse Oximetry 97 05/08/19 12:58 Temperature 97.8 F 05/08/19 19:09 Pulse Rate 72 05/08/19 19:09 Respiratory Rate 18 05/08/19 19:09 Blood Pressure 161/76 05/08/19 19:09 O2 Sat by Pulse Oximetry 98 05/08/19 19:09 Oxygen Delivery Oxygen Delivery Room Air Medical Decision Making - MDM Narrative Medical decision making narrative: Patient presented emergency department from the catheter lab where he had undergone a lower extremity catheterization. Upon completion of the catheterization the patient was weak and dizzy when he got up to go the bathroom. He has not returned to baseline. Laboratory evaluation of electrolytes and blood counts were normal. CT scan to evaluate for intracranial process revealed no intracranial process. Patient lives by himself and does not have anyone to help take care of him. Patient feels he is to weak to go home at this time alone. Patient should be observed, and hospitalist has agreed to admit the patient to observation - Medical Records Medical records reviewed: Yes I reviewed the patient's medical records. - Lab Data Lab results reviewed: Yes I reviewed the patient's lab results. Result diagrams: 05/08/19 13:05 05/08/19 13:05 Lab Results 05/08/19 05/08/19 Range/Units 13:05 13:05 WBC 6.8 (4.3-11.1) K/mcL RBC 4.80 (4.19-5.50) M/mcL Hgb 14.7 (12.9-16.9) g/dL Hct 44.5 (37.5-50.1) % MCV 92.7 (83.0-100.0) fL MCH 30.6 (28.0-33.3) pg MCHC 33.0 (31.6-35.5) g/dL RDW 12.8 (11.5-14.5) % Plt Count 177 (140-400) K/mcL MPV 9.5 (9.4-12.4) fL Immature Gran % 0.4 (0-4) % Seg Neutrophils % 51.6 % Lymphocytes % 31.1 % Monocytes % 11.7 % Eosinophils % 4.8 % Basophils % 0.4 % Neutrophils # 3.5 (1.6-8.9) K/mcL Lymphocytes # 2.1 (0.6-4.6) K/mcL Monocytes # 0.8 (0.0-1.3) K/mcL Eosinophils # 0.3 (0.0-0.6) K/mcL Basophils # 0.0 (0.0-0.2) K/mcL Sodium 138 (136-145) mEq/L Potassium 3.9 (3.5-5.1) mEq/L Chloride 103 (98-107) mEq/L Carbon Dioxide 29 (23-29) mEq/L BUN 19 (8-23) mg/dL Creatinine 1.07 (0.70-1.30) mg/dL Est GFR ( Amer) > 60 (> 60) Est GFR (Non-Af Amer) > 60 (> 60) BUN/Creatinine Ratio 18 (6-26) Glucose 105 (70-105) mg/dL Calculated Osmolality 289 (280-300) Calcium 9.2 (8.6-10.3) mg/dL Total Bilirubin 0.5 (0.3-1.0) mg/dL AST 20 (13-39) Units/L ALT 22 (7-52) Units/L Alkaline Phosphatase 39 (34-104) Units/L Serum Total Protein 7.0 (6.4-8.9) g/dL Albumin 4.4 (3.5-5.7) g/dL Globulin 2.6 (2.4-3.5) g/dL Albumin/Globulin Ratio 1.7 (1.1-2.2) - Radiology Data Radiology results reviewed: Yes I reviewed the patient's radiology results. Head CT 05/08/19 13:32 IMPRESSION: No acute intracranial abnormality. D/ / Guido Ball MD / Guido Ball MD Interpreting Provider: Guido Ball MD - EKG Data EKG #1 EKG attestation: Yes I reviewed and interpreted this EKG. EKG results narrative: EKG performed at 1302 reviewed by myself and attending demonstrates a sinus rhythm with a rate of 73 MD 150, QRS 88, QTC 445. There are no signs of ischemia. There is a single PVC. This EKG is similar to one performed 04/29/2019 overall this is a normal EKG.
[2019-05-08 13:45] LABS: Basophils % 0.4 %; Eosinophils # 0.3 K/mcL (0.0-0.6); Eosinophils % 4.8 %; Hematocrit 44.5 % (37.5-50.1); Hemoglobin 14.7 g/dL (12.9-16.9); Immature Granulocytes % 0.4 % (0-4); Lymphocytes # 2.1 K/mcL (0.6-4.6); Lymphocytes % 31.1 %; Mean Corpuscular Hemoglobin 30.6 pg (28.0-33.3); Mean Corpuscular Volume 92.7 fL (83.0-100.0); Mean Platelet Volume 9.5 fL (9.4-12.4); Monocytes # 0.8 K/mcL (0.0-1.3); Monocytes % 11.7 %; Neutrophils # 3.5 K/mcL (1.6-8.9); Platelet Count 177 K/mcL (140-400); Red Cell Distribution Width 12.8 % (11.5-14.5); Segmented Neutrophils % 51.6 %; White Blood Count 6.8 K/mcL (4.3-11.1)
[2019-05-08 14:06] LABS: Alanine Aminotransferase 22 Units/L (7-52); Albumin 4.4 g/dL (3.5-5.7); Albumin/Globulin Ratio 1.7 (1.1-2.2); Alkaline Phosphatase 39 Units/L (34-104); Aspartate Amino Transferase 20 Units/L (13-39); BUN/Creatinine Ratio 18 (6-26); Bilirubin,Total 0.5 mg/dL (0.3-1.0); Blood Urea Nitrogen 19 mg/dL (8-23); Calcium 9.2 mg/dL (8.6-10.3); Carbon Dioxide 29 mEq/L (23-29); Chloride 103 mEq/L (98-107); Globulin 2.6 g/dL (2.4-3.5); Glucose 105 mg/dL (70-105); Osmolality,Calculated 289 (280-300); Potassium 3.9 mEq/L (3.5-5.1); Sodium 138 mEq/L (136-145); eGFR For African Americans > 60 (> 60); eGFR For Non-African Americans > 60 (> 60)
[2019-05-08] MEDS ORDERED: 0.9 % Sodium Chloride 1,000 ML IVC ONE (15:58)
[2019-05-08] MEDS ORDERED: Ondansetron 4 MG/2 ML VIAL IVP PRN (16:33)
[2019-05-08] MEDS ORDERED: Naloxone 0.4 MG/ML INJ IVP PRN (16:33)
[2019-05-08] MEDS ORDERED: Ringers Solution, Lactated 1,000 ML IVC SCH (16:45)
--- NOTE | 2019-05-08 16:49 | Internal Med History&Physical ---
Date of Encounter: 05/08/19 Time of Encounter: 16:30 Internal Medicine - H&P: HPI Chief complaint: Dizziness Admitted From: Home History of present illness: Mr. 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 Patient underwent aortogram and bilateral lower extremity angiogram by vascular surgery today under conscious sedation. Post procedure, he felt lightheaded and was noted to be unsteady on ambulation when he was about to be discharged. Therefore, patient was sent to the ED for further evaluation. Denies any facial droop, slurring of speech, focal weakness/numbness, diplopia, dysphagia, blurring of vision, or headache. No chest pain, palpitation, cough, sputum production, abdominal pain, nausea/vomiting, change in bowel habits, or dysuria. In the ED, he was afebrile and hemodynamically stable. Basic lab work were completely normal. EKG showed normal sinus rhythm with normal QTc. CT head did not show any acute intracranial processes. During his ED stay, he did feel much better but was not yet close to his baseline. Pt also lives alone and there was a concern for home safety. He was given IV fluid and admitted for overnight observation. Past Med Surg Social Fam HX - Past Medical History Medical history: CHF, peripheral artery disease Additional medical history: Breast CA Psychiatric history: no psych history - Past Surgical History Surgical History: vasectomy - Social History Smoking Status: Former smoker Smokeless Tobacco Status: No Alcohol use: occasionally Drug use: none - Family History Mother History Unknown: Yes Living Status: Hx Family Cardiac Disorders: Yes (heart attack) Father Living Status: Internal Medicine - H&P: Meds Cyanocobalamin (Vitamin B-12) [Vitamin B12] 5,000 mcg PO DAILY 10/24/16 [History] Milk Thistle Seed Extract [Milk Thistle] 1 cap PO DAILY 10/24/16 [History] Mv-Mn/FA/Vit K/Lycop/Lut/Coq10 [Daily Multivitamin Capsule] 1 each PO DAILY 10/24/16 [History] Aspirin [Lo-Dose Aspirin EC] 81 mg PO DAILY #30 tablet. 01/29/19 [Rx] Ascorbate Calcium [Vitamin C] 500 mg PO DAILY 05/08/19 [History] Cholecalciferol (Vitamin D3) [Dialyvite Vitamin D] 5,000 unit PO DAILY 05/08/19 [History] Diosmin 1 gm PO DAILY 05/08/19 [History] Lutein [Natural Lutein] 20 mg PO DAILY 05/08/19 [History] Allergy/AdvReac Type Severity Reaction Status Date / Time apixaban [From Eliquis] AdvReac Headache Verified 05/08/19 07:07 All Systems PM: A 10-system review of systems was performed and is negative for pertinent findings except as documented above in the HPI. - Constitutional Vitals: Temp Pulse Resp BP Pulse Ox 98.0 F 66 16 160/66 92 05/08/19 14:00 05/08/19 16:15 05/08/19 16:15 05/08/19 16:15 05/08/19 16:15 Exam: General: Alert and oriented, not in acute distress. HEENT:EOMI, pupils equal, round and reactive. Cardiovascular:Normal S1 & S2, No JVD. Pulse regular. Lungs: clear to auscultation, no wheezes/rales Abdomen:Soft, non-tender, no rigidity. Extremities:No deformity or swelling Neurological: CN II-XII intact, power and sensation fully intact in all 4 limbs. No cerebellar signs, pronator drift -ve, Babinski downgoing bilaterally Skin:Normal color, no rash, no lesions. Pulses:Carotid and radial pulses normal +2. Rest of the physical exam is non contributory Internal Med - H&P Results - Labs CBC & Chem 7: 05/08/19 13:05 05/08/19 13:05 Labs: Short CBC 05/08/19 Range/Units 13:05 WBC 6.8 (4.3-11.1) K/mcL Hgb 14.7 (12.9-16.9) g/dL Hct 44.5 (37.5-50.1) % Plt Count 177 (140-400) K/mcL Neutrophils # 3.5 (1.6-8.9) K/mcL BMP 05/08/19 13:05 Sodium 138 Potassium 3.9 Chloride 103 Carbon Dioxide 29 BUN 19 Creatinine 1.07 Glucose 105 Calcium 9.2 Liver Function 05/08/19 Range/Units 13:05 Total Bilirubin 0.5 (0.3-1.0) mg/dL AST 20 (13-39) Units/L ALT 22 (7-52) Units/L Alkaline Phosphatase 39 (34-104) Units/L Albumin 4.4 (3.5-5.7) g/dL - Impressions ITS Impressions Head CT 05/08/19 13:32 IMPRESSION: No acute intracranial abnormality. D/ / Guido Ball MD / Guido Ball MD Interpreting Provider: Guido Ball MD - Assessment and Plan (1) Lightheadedness Current Visit: Yes Status: Acute Assessment and plan: Appears to be related to sedative agents used during the procedure no focal neurological deficits, no arrhythmia noted on EKG basic lab work normal will keep on IVF and telemetry overnight if there is no symptomatic improvement overnight, would consider workup for TIA (2) COPD (chronic obstructive pulmonary disease) Current Visit: No Status: Chronic Assessment and plan: not in exacerbation, PRN DuoNeb Qualifiers: COPD type: unspecified COPD Qualified Code(s): J44.9 - Chronic obstructive pulmonary disease, unspecified (3) Deep vein thrombosis of lower extremity Current Visit: No Status: Chronic Assessment and plan: Patient opted out of anticoagulation after discussing with Oncology in January 2019 Currently on aspirin only Qualifiers: Affected thrombotic vein of extremity: femoral Chronicity: acute Laterality: right Qualified Code(s): I82.411 - Acute embolism and thrombosis of right femoral vein (4) Diastolic heart failure Current Visit: No Status: Chronic Assessment and plan: Not in exacerbation Qualifiers: Heart failure chronicity: chronic Qualified Code(s): I50.32 - Chronic diastolic (congestive) heart failure - Time Spent With Patient Total time spent is greater than 50% in coordination of care (as documented) at patient's floor/unit and/or counseling patient: 25 - 35 minutes
--- NOTE | 2019-05-08 16:55 | Emergency Department Note ---
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, from labor relations supervisor Time Seen by Provider: 05/08/19 12:59 Source: patient Mode of arrival: ambulatory Limitations: no limitations - History of Present Illness Pain Scale: 0 - Related Data Home Medications Medication Instructions Recorded Confirmed Cyanocobalamin (Vitamin B-12) 5,000 mcg PO DAILY 10/24/16 05/08/19 [Vitamin B12] Milk Thistle Seed Extract [Milk 1 cap PO DAILY 10/24/16 05/08/19 Thistle] Mv-Mn/FA/Vit K/Lycop/Lut/Coq10 1 each PO DAILY 10/24/16 05/08/19 [Daily Multivitamin Capsule] Ascorbate Calcium [Vitamin C] 500 mg PO DAILY 05/08/19 05/08/19 Cholecalciferol (Vitamin D3) 5,000 unit PO DAILY 05/08/19 05/08/19 [Dialyvite Vitamin D] Diosmin 1 gm PO DAILY 05/08/19 05/08/19 Lutein [Natural Lutein] 20 mg PO DAILY 05/08/19 05/08/19 Previous Rx's Medication Instructions Recorded Aspirin [Lo-Dose Aspirin EC] 81 mg PO DAILY #30 tablet. 01/29/19 Allergies Allergy/AdvReac Type Severity Reaction Status Date / Time apixaban [From Eliquis] AdvReac Headache Verified 05/08/19 07:07 Constitutional: Reports: weakness. Denies: fever, chills Eyes: Denies: vision change ENT ED: Denies: ear pain, throat pain Cardiovascular: Denies: chest pain, palpitations, dyspnea on exertion Respiratory: Denies: cough, dyspnea, wheezes Gastrointestinal: Denies: abdominal pain, nausea, vomiting Genitourinary: Denies: urgency, dysuria, frequency Musculoskeletal: Denies: back pain, neck pain Integumentary: Denies: rash, abrasion Neurological: Reports: weakness. Denies: headache, numbness, paresthesias, confusion Past Medical History - Past Medical History Medical history: Reports: CHF, peripheral artery disease Surgical history: Reports: vasectomy Psychiatric history: Reports: no psych history - Social History Smoking Status: Former smoker Smokeless Tobacco Status: No Alcohol use: Reports: occasionally Drug use: Reports: none Physical Exam - General Limitations: no limitations General appearance: alert, in no apparent distress Course Vital Signs Temperature 98.0 F 05/08/19 12:58 Pulse Rate 70 05/08/19 12:58 Respiratory Rate 16 05/08/19 12:58 Blood Pressure 149/78 05/08/19 12:58 O2 Sat by Pulse Oximetry 97 05/08/19 12:58 Temperature 97.3 F L 05/09/19 12:14 Pulse Rate 71 05/09/19 12:14 Respiratory Rate 18 05/09/19 12:14 Blood Pressure 134/67 05/09/19 12:14 O2 Sat by Pulse Oximetry 96 05/09/19 12:14 Oxygen Delivery Oxygen Delivery Room Air Medical Decision Making - Lab Data Result diagrams: 05/08/19 13:05 05/08/19 13:05 Lab Results 05/08/19 05/08/19 Range/Units 13:05 13:05 WBC 6.8 (4.3-11.1) K/mcL RBC 4.80 (4.19-5.50) M/mcL Hgb 14.7 (12.9-16.9) g/dL Hct 44.5 (37.5-50.1) % MCV 92.7 (83.0-100.0) fL MCH 30.6 (28.0-33.3) pg MCHC 33.0 (31.6-35.5) g/dL RDW 12.8 (11.5-14.5) % Plt Count 177 (140-400) K/mcL MPV 9.5 (9.4-12.4) fL Immature Gran % 0.4 (0-4) % Seg Neutrophils % 51.6 % Lymphocytes % 31.1 % Monocytes % 11.7 % Eosinophils % 4.8 % Basophils % 0.4 % Neutrophils # 3.5 (1.6-8.9) K/mcL Lymphocytes # 2.1 (0.6-4.6) K/mcL Monocytes # 0.8 (0.0-1.3) K/mcL Eosinophils # 0.3 (0.0-0.6) K/mcL Basophils # 0.0 (0.0-0.2) K/mcL Sodium 138 (136-145) mEq/L Potassium 3.9 (3.5-5.1) mEq/L Chloride 103 (98-107) mEq/L Carbon Dioxide 29 (23-29) mEq/L BUN 19 (8-23) mg/dL Creatinine 1.07 (0.70-1.30) mg/dL Est GFR ( Amer) > 60 (> 60) Est GFR (Non-Af Amer) > 60 (> 60) BUN/Creatinine Ratio 18 (6-26) Glucose 105 (70-105) mg/dL Calculated Osmolality 289 (280-300) Calcium 9.2 (8.6-10.3) mg/dL Total Bilirubin 0.5 (0.3-1.0) mg/dL AST 20 (13-39) Units/L ALT 22 (7-52) Units/L Alkaline Phosphatase 39 (34-104) Units/L Serum Total Protein 7.0 (6.4-8.9) g/dL Albumin 4.4 (3.5-5.7) g/dL Globulin 2.6 (2.4-3.5) g/dL Albumin/Globulin Ratio 1.7 (1.1-2.2) Attestation Statement - Attestation Attestation: I examined this patient and my medical decision-making was reviewed with the Resident Physician. I agree with the documented findings, disposition and treatment plan as described except to the extent set forth below. Patient 73-year-old gentleman presents to emergency department status post undergoing a cardiac catheterization for peripheral vascular disease. The patient had no stents placed but after finishing the catheterization the patient said he became extremely lightheaded and felt as though he was going to pass out. The patient denies chest pain denies shortness of breath denies lower extremity pain. Physical exam patient is awake alert no acute distress Medical decision management patiently helical imaging of the brain that showed no evidence of acute abdomen mildly lab for studies are within normal limits patient was observed in the emergency department and hydrated patient is still symptomatically almost feeling somewhat better the case was discussed with the hospitalist the patient will be admitted for observation.
[2019-05-08] MEDS: *HR* Heparin 5,000 UNIT/ML VIAL SQ SCH (20:17)
[2019-05-09] MEDS: *HR* Heparin 5,000 UNIT/ML VIAL SQ SCH (05:28)
[2019-05-09] MEDS ORDERED: Aspirin Enteric Coated 81 MG Tablet PO SCH (09:00)
--- NOTE | 2019-05-09 10:15 | Discharge Summary ---
- NOTES TO OUTPATIENT PROVIDER Notes to Outpatient Provider: Follow up with vascular surgery Date of Encounter: 05/09/19 Time of Encounter: 08:15 - Discharge Diagnosis (1) Lightheadedness Priority: Primary Status: Acute (2) COPD (chronic obstructive pulmonary disease) Priority: Secondary Status: Chronic Qualifiers: COPD type: unspecified COPD Qualified Code(s): J44.9 - Chronic obstructive pulmonary disease, unspecified (3) Deep vein thrombosis of lower extremity Priority: Secondary Status: Chronic Qualifiers: Affected thrombotic vein of extremity: femoral Chronicity: acute Laterality: right Qualified Code(s): I82.411 - Acute embolism and thrombosis of right femoral vein (4) Diastolic heart failure Priority: Secondary Status: Chronic Qualifiers: Heart failure chronicity: chronic Qualified Code(s): I50.32 - Chronic diastolic (congestive) heart failure Hospital course: Mr. Manjarrez is a 73 year old male with history of DVT no longer on anticoagulation by choice and PAD who was admitted due to lightheadedness and unsteady gait following aortogram and bilateral lower extremity angiogram under conscious sedation. Workup unremarkable, no signs of arrhythmia on both EKG and telemetry overnight, and he clinically improved spontaneously after overnight observation. Likely due to the effect of sedatives, he will be discharged in stable condition on 05/09. Follow up with vascular surgery as outpatient. Discharge discussed with: patient, nurse, organizational consultant - Time Spent with Patient Total time spent providing and/or coordinating discharge services: 24 mins - Discharge Medications Prescriptions: Continued Cyanocobalamin (Vitamin B-12) [Vitamin B12] 5,000 mcg PO DAILY Mv-Mn/FA/Vit K/Lycop/Lut/Coq10 [Daily Multivitamin Capsule] 1 each PO DAILY Milk Thistle Seed Extract [Milk Thistle] 1 cap PO DAILY Aspirin [Lo-Dose Aspirin EC] 81 mg PO DAILY #30 tablet.dr Wren 1 gm PO DAILY Cholecalciferol (Vitamin D3) [Dialyvite Vitamin D] 5,000 unit PO DAILY Lutein [Natural Lutein] 20 mg PO DAILY Ascorbate Calcium [Vitamin C] 500 mg PO DAILY Home Medications: Cyanocobalamin (Vitamin B-12) [Vitamin B12] 5,000 mcg PO DAILY 10/24/16 [History] Milk Thistle Seed Extract [Milk Thistle] 1 cap PO DAILY 10/24/16 [History] Mv-Mn/FA/Vit K/Lycop/Lut/Coq10 [Daily Multivitamin Capsule] 1 each PO DAILY 10/24/16 [History] Aspirin [Lo-Dose Aspirin EC] 81 mg PO DAILY #30 tablet. 01/29/19 [Rx] Ascorbate Calcium [Vitamin C] 500 mg PO DAILY 05/08/19 [History] Cholecalciferol (Vitamin D3) [Dialyvite Vitamin D] 5,000 unit PO DAILY 05/08/19 [History] Diosmin 1 gm PO DAILY 05/08/19 [History] Lutein [Natural Lutein] 20 mg PO DAILY 05/08/19 [History] Allergies/Adverse Reactions: Allergy/AdvReac Type Severity Reaction Status Date / Time apixaban [From Eliquis] AdvReac Headache Verified 05/08/19 07:07 Date of admission: 05/08/19 17:56 Primary care physician: Leighton España MD - Constitutional Vitals: Temp Pulse Resp BP Pulse Ox 97.9 F 72 18 136/78 96 05/09/19 07:23 05/09/19 07:23 05/09/19 07:23 05/09/19 07:23 05/09/19 07:23 Exam: General: Alert and oriented, not in acute distress. HEENT:EOMI, pupils equal, round and reactive. Cardiovascular:Normal S1 & S2, No JVD. Pulse regular. Lungs: clear to auscultation, no wheezes/rales Abdomen:Soft, non-tender, no rigidity. Extremities:No deformity or swelling Neurological: CN II-XII intact, power and sensation fully intact in all 4 limbs. No cerebellar signs, pronator drift -ve, Babinski downgoing bilaterally - Patient Status Disposition: Home, Self-Care Condition: Good Functional capacity at discharge: independent ambulation Overall status at discharge: patient is progressing back to baseline - Discharge Instructions Instructions: Chronic Obstructive Pulmonary Disease (DC), Deep Venous Thrombosis (DC) Follow Up With: Leighton España MD [Primary Care Provider] - Loco Trivedi MD [Partnered Physician] - - Diet and Activity Activity: resume usual activities as tolerated Diet: regular diet
[2019-05-09 12:15] VITALS: BP 134/67
--- NOTE | 2019-05-12 00:02 | Electrocardiograph Report ---
[facility] [employer] Test Date: 2019-05-08 Pat Name: Joo Manjarrez Department: [id number] Room: 3B24 Gender: M Adult Basic Education Instructor: : 1945 Requested By: [id number] Order Number: [id number] Reading MD: Sanjuana Yan Measurements Intervals [place] Rate: 73 P: 72 W[place]: 150 QRS: 53 QRSD: 88 T: 58 QT: 403 QTc: 445 Interpretive Statements Sinus rhythm Ventricular premature complex Electronically Signed On 05-12-2019 0:00:34 EDT by Sanjuana Yan
== END 2019-05-09 14:02 | disposition home or self-care (01) ==
LOC: 3BNU 12:55 → EMEROOARM 12:55 → 3BNU 18:29
PROVIDERS: ADMIT Internal Medicine; ATTEND Internal Medicine

== ENCOUNTER 2020-04-26 22:05 | Inpatient (IN) ==
[2020-04-26] MEDS ORDERED: Cefepime HCl 2,000 MG in Water for inj. (sterile) 20 ML IVP STA (22:12)
[2020-04-26] MEDS ORDERED: methylPREDNISolone 125 MG/2 ML VIAL IVP ONE (22:25)
[2020-04-26] MEDS ORDERED: Albuterol 2.5 MG/3 ML NEBULIZER IH ONE (22:25)
[2020-04-26 22:59] LABS: Basophils % 0.1 %; Hematocrit 41.7 % (37.5-50.1); Hemoglobin 13.9 g/dL (12.9-16.9); Immature Granulocytes % 0.8 % (0-4); Lymphocytes % 14.2 %; Mean Corpuscular HGB Conc 33.3 g/dL (31.6-35.5); Mean Corpuscular Hemoglobin 30.8 pg (28.0-33.3); Mean Corpuscular Volume 92.3 fL (83.0-100.0); Mean Platelet Volume 9.4 fL (9.4-12.4); Monocytes # 0.8 K/mcL (0.0-1.3); Monocytes % 11.2 %; Neutrophils # 5.4 K/mcL (1.6-8.9); Platelet Count 187 K/mcL (140-400); Red Blood Count 4.52 M/mcL (4.19-5.50); Red Cell Distribution Width 12.8 % (11.5-14.5); Segmented Neutrophils % 73.7 %; White Blood Count 7.3 K/mcL (4.3-11.1)
[2020-04-26 23:09] LABS: Alanine Aminotransferase 23 Units/L (7-52); Albumin 3.5 g/dL (3.5-5.7); Albumin/Globulin Ratio 1.5 (1.1-2.2); Alkaline Phosphatase 32 Units/L (34-104); Aspartate Amino Transferase 31 Units/L (13-39); BUN/Creatinine Ratio 19 (6-26); Bilirubin,Total 0.5 mg/dL (0.3-1.0); Blood Urea Nitrogen 14 mg/dL (8-23); Calcium 8.1 mg/dL (8.6-10.3); Carbon Dioxide 26 mEq/L (23-29); Chloride 98 mEq/L (98-107); Globulin 2.4 g/dL (2.4-3.5); Glucose 103 mg/dL (70-105); Osmolality,Calculated 275 (280-300); Potassium 3.8 mEq/L (3.5-5.1); Sodium 132 mEq/L (136-145); Total Protein 5.9 g/dL (6.4-8.9); Troponin I 0.03 ng/mL (< 0.04); eGFR For African Americans > 60 (> 60); eGFR For Non-African Americans > 60 (> 60)
[2020-04-26] MEDS ORDERED: Isovue-370 500 ML BOTTLE IVP ONE (23:37)
[2020-04-27] MEDS ORDERED: Naloxone 0.4 MG/ML INJ IVP PRN (01:32)
[2020-04-27] MEDS ORDERED: Azithromycin 250 MG TABLET PO SCH (02:30)
[2020-04-27] MEDS ORDERED: Acetaminophen 325 MG TABLET PO PRN (04:48)
[2020-04-27] MEDS ORDERED: Ondansetron 4 MG/2 ML VIAL IVP PRN (04:48)
[2020-04-27] MEDS: *HR* Enoxaparin 40 MG/0.4 ML SYRINGE SQ SCH (05:35)
[2020-04-27 06:35] LABS: Basophils % 0.5 %; Hematocrit 44.1 % (37.5-50.1); Hemoglobin 14.3 g/dL (12.9-16.9); Immature Granulocytes % 0.9 % (0-4); Lymphocytes # 0.7 K/mcL (0.6-4.6); Lymphocytes % 11.4 %; Mean Corpuscular HGB Conc 32.4 g/dL (31.6-35.5); Mean Corpuscular Hemoglobin 30.5 pg (28.0-33.3); Mean Platelet Volume 10.4 fL (9.4-12.4); Monocytes # 0.3 K/mcL (0.0-1.3); Monocytes % 5.1 %; Neutrophils # 5.3 K/mcL (1.6-8.9); Platelet Count 155 K/mcL (140-400); Red Blood Count 4.69 M/mcL (4.19-5.50); Red Cell Distribution Width 13.1 % (11.5-14.5); Segmented Neutrophils % 82.1 %; White Blood Count 6.5 K/mcL (4.3-11.1)
[2020-04-27 06:50] LABS: Alanine Aminotransferase 25 Units/L (7-52); Albumin 3.6 g/dL (3.5-5.7); Albumin/Globulin Ratio 1.3 (1.1-2.2); Alkaline Phosphatase 30 Units/L (34-104); Aspartate Amino Transferase 33 Units/L (13-39); BUN/Creatinine Ratio 23 (6-26); Bilirubin,Total 0.4 mg/dL (0.3-1.0); Blood Urea Nitrogen 16 mg/dL (8-23); Calcium 8.6 mg/dL (8.6-10.3); Carbon Dioxide 26 mEq/L (23-29); Chloride 102 mEq/L (98-107); Globulin 2.8 g/dL (2.4-3.5); Glucose 161 mg/dL (70-105); Magnesium 2.2 mg/dL (1.6-2.6); Osmolality,Calculated 285 (280-300); Phosphorous 3.5 mg/dL (2.7-4.5); Potassium 4.4 mEq/L (3.5-5.1); Sodium 135 mEq/L (136-145); Total Protein 6.4 g/dL (6.4-8.9); eGFR For African Americans > 60 (> 60); eGFR For Non-African Americans > 60 (> 60)
[2020-04-27] MEDS ORDERED: Cefepime HCl 1,000 MG in 0.9 % Sodium Chloride Mini Bag 100 ML IVPB SCH (08:00)
[2020-04-27] MEDS ORDERED: Furosemide 40 MG/4 ML VIAL IVP ONE (09:07)
[2020-04-27] MEDS: Dexamethasone 4 MG/ML VIAL IVP SCH (09:24)
[2020-04-27] MEDS ORDERED: Vancomycin 1,500 MG/265 ML IV.SOLN IVPB SCH (10:00)
[2020-04-27] MEDS: levoFLOXacin 750 MG TABLET PO SCH (15:53)
[2020-04-28 01:29] LABS: Basophils % 0.2 %; Hematocrit 40.7 % (37.5-50.1); Hemoglobin 13.7 g/dL (12.9-16.9); Immature Granulocytes % 0.9 % (0-4); Lymphocytes # 0.9 K/mcL (0.6-4.6); Lymphocytes % 8.3 %; Mean Corpuscular HGB Conc 33.7 g/dL (31.6-35.5); Mean Corpuscular Hemoglobin 31.4 pg (28.0-33.3); Mean Corpuscular Volume 93.1 fL (83.0-100.0); Mean Platelet Volume 9.5 fL (9.4-12.4); Monocytes # 0.9 K/mcL (0.0-1.3); Neutrophils # 9.2 K/mcL (1.6-8.9); Platelet Count 202 K/mcL (140-400); Red Blood Count 4.37 M/mcL (4.19-5.50); Segmented Neutrophils % 82.6 %
[2020-04-28 01:35] LABS: White Blood Count 11.1 K/mcL (4.3-11.1)
[2020-04-28 01:55] LABS: BUN/Creatinine Ratio 34 (6-26); Blood Urea Nitrogen 23 mg/dL (8-23); Calcium 8.8 mg/dL (8.6-10.3); Carbon Dioxide 22 mEq/L (23-29); Chloride 102 mEq/L (98-107); Glucose 170 mg/dL (70-105); Osmolality,Calculated 286 (280-300); Potassium 4.1 mEq/L (3.5-5.1); Sodium 134 mEq/L (136-145); eGFR For African Americans > 60 (> 60); eGFR For Non-African Americans > 60 (> 60)
[2020-04-28] MEDS: *HR* Enoxaparin 40 MG/0.4 ML SYRINGE SQ SCH (05:23)
[2020-04-28 07:52] LABS: Adenovirus Not Detected (Not Detect); Bordetella Pertussis Not Detected (Not Detect); Chlamydophila pneumoniae Not Detected (Not Detect); Coronavirus 229E Not Detected (Not Detect); Coronavirus HKU1 Not Detected (Not Detect); Coronavirus NL63 Not Detected (Not Detect); Coronavirus OC43 Not Detected (Not Detect); Human Metapneumovirus Not Detected (Not Detect); Human Rhinovirus/Enterovirus Not Detected (Not Detect); Influenza A Subtype 2009 H1 Not Detected (Not Detect); Influenza B Not Detected (Not Detect); Mycoplasma pneumoniae Not Detected (Not Detect); Parainfluenza Virus 1 Not Detected (Not Detect); Parainfluenza Virus 2 Not Detected (Not Detect); Parainfluenza Virus 3 Not Detected (Not Detect); Parainfluenza Virus 4 Not Detected (Not Detect); Respiratory Syncytial Virus Not Detected (Not Detect)
[2020-04-28] MEDS: levoFLOXacin 750 MG TABLET PO SCH (08:38)
[2020-04-28] MEDS: Dexamethasone 4 MG/ML VIAL IVP SCH (08:38)
[2020-04-28 11:39] LABS: Bilirubin,Urine Negative (Negative); Blood,Urine Negative (Negative); Clarity,Urine Clear (Clear); Color,Urine Yellow (Yellow); Glucose,Urine (UA) Normal (Normal); Ketones,Urine Negative (Negative); Leukocyte Esterase,Urine Negative (Negative); Nitrite,Urine Negative (Negative); PH,Urine 6.5 pH Units (5.0-8.0); Protein,Urine Trace mg/dL (Neg-Trace); Specific Gravity,Urine 1.028 (1.010-1.025); Urobilinogen,Urine Normal (Normal)
[2020-04-28 11:54] LABS: Acinetobacter baumannii by PCR Not Detected (Not Detect); Candida albicans by PCR Not Detected (Not Detect); Candida glabrata by PCR Not Detected (Not Detect); Candida krusei by PCR Not Detected (Not Detect); Candida parapsilosis by PCR Not Detected (Not Detect); Candida tropicalis by PCR Not Detected (Not Detect); Enterobacter cloacae Cmplx PCR Not Detected (Not Detect); Enterobacteriaceae by PCR Not Detected (Not Detect); Enterococcus by PCR Not Detected (Not Detect); Escherichia coli by PCR Not Detected (Not Detect); Klebsiella oxytoca by PCR Not Detected (Not Detect); Klebsiella pneumoniae by PCR Not Detected (Not Detect); Proteus by PCR Not Detected (Not Detect); Pseudomonas aeruginosa by PCR Not Detected (Not Detect); Serratia marcescens by PCR Not Detected (Not Detect); Staphylococcus aureus by PCR Not Detected (Not Detect); Staphylococcus by PCR Not Detected (Not Detect); Streptococcus agalactiae(B)PCR Not Detected (Not Detect); Streptococcus by PCR Not Detected (Not Detect); Streptococcus pneumoniae PCR Not Detected (Not Detect); Streptococcus pyogenes (A) PCR Not Detected (Not Detect)
[2020-04-28] MEDS: Ampicillin/Sulbactam 3,000 MG in 0.9 % Sodium Chloride Mini Bag 100 ML IVPB SCH ×2 (16:07→23:13)
[2020-04-29 03:13] LABS: Basophils % 0.1 %; Hematocrit 38.3 % (37.5-50.1); Hemoglobin 12.8 g/dL (12.9-16.9); Immature Granulocytes % 1.1 % (0-4); Lymphocytes # 0.8 K/mcL (0.6-4.6); Lymphocytes % 6.2 %; Mean Corpuscular HGB Conc 33.4 g/dL (31.6-35.5); Mean Corpuscular Hemoglobin 30.5 pg (28.0-33.3); Mean Corpuscular Volume 91.4 fL (83.0-100.0); Mean Platelet Volume 9.5 fL (9.4-12.4); Monocytes # 0.9 K/mcL (0.0-1.3); Monocytes % 6.5 %; Neutrophils # 11.6 K/mcL (1.6-8.9); Platelet Count 231 K/mcL (140-400); Red Blood Count 4.19 M/mcL (4.19-5.50); Red Cell Distribution Width 13.1 % (11.5-14.5); Segmented Neutrophils % 86.1 %; White Blood Count 13.5 K/mcL (4.3-11.1)
[2020-04-29 03:37] LABS: BUN/Creatinine Ratio 36 (6-26); Blood Urea Nitrogen 24 mg/dL (8-23); Calcium 8.6 mg/dL (8.6-10.3); Carbon Dioxide 23 mEq/L (23-29); Chloride 104 mEq/L (98-107); Glucose 124 mg/dL (70-105); Osmolality,Calculated 287 (280-300); Potassium 4.3 mEq/L (3.5-5.1); Sodium 136 mEq/L (136-145); eGFR For African Americans > 60 (> 60); eGFR For Non-African Americans > 60 (> 60)
[2020-04-29] MEDS: *HR* Enoxaparin 40 MG/0.4 ML SYRINGE SQ SCH (05:05)
[2020-04-29] MEDS: Ampicillin/Sulbactam 3,000 MG in 0.9 % Sodium Chloride Mini Bag 100 ML IVPB SCH ×2 (05:05→12:38)
[2020-04-29] MEDS: Dexamethasone 4 MG/ML VIAL IVP SCH (08:16)
[2020-04-29 08:29] VITALS: BP 166/83
== END 2020-04-29 14:48 | disposition home or self-care (01) | DRG 177 ==
LOC: EMEROOARM 22:05 → 2NENU 22:05 → SUATTDRO 04-27 01:30 → 2NENU 04-27 02:35 → SUATTDRO 04-28 18:17
PROVIDERS: ADMIT Internal Medicine; ATTEND Internal Medicine